=== PATIENT | female | born 1965 | race Caucasian/White ===

== ENCOUNTER 2020-01-19 16:44 | Emergency (ER) | payer MEDICAID ==
[2020-01-19] MEDS ORDERED: Sodium Chloride 0.9% 10 ML Syringe FLUSH PRN (17:35)
[2020-01-19] MEDS ORDERED: Sodium Chloride 0.9% 1,000 ML IV SCH (17:45)
--- NOTE | 2020-01-19 18:13 | EDM.PDOC ---
ED HPI GENERAL MEDICAL PROBLEM - General Chief Complaint: General Stated Complaint: RACING HEART/LIGHT HEADED Time Seen by Provider: 01/19/20 17:15 Source of Information: Reports: Patient - History of Present Illness INITIAL COMMENTS - FREE TEXT/NARRATIVE: pt presents to the ER with palpitations starting at about 1500 today, she has a history of SVT which usually reverses with vagal maneuvers. this was not the case today on her way up to [place] traveling from [facility]. she took 100mg of her prescribed beta gaurang with no improvement after two hours and she states it has been over three years since her last ER visit for this. pt denies fever, cough, chills, nausea, vomiting, chest pain. - Related Data Allergies Allergy/AdvReac Type Severity Reaction Status Date / Time Penicillins Allergy Anaphylactic Verified 01/19/20 17:19 Shock Past Medical History Cardiovascular History: Reports: Arrhythmia, Other (See Below) Other Cardiovascular History: SVT, dizziness Endocrine/Metabolic History: Reports: Diabetes, Type I Social & Family History - Tobacco Use Smoking Status *Q: Never Smoker Second Hand Smoke Exposure: No - Caffeine Use Caffeine Use: Reports: None - Recreational Drug Use Recreational Drug Use: No ED ROS GENERAL - Review of Systems Review Of Systems: Comprehensive ROS is negative, except as noted in HPI. ED EXAM, GENERAL - Physical Exam Exam: See Below Exam Limited By: No Limitations General Appearance: Alert, WD/WN Eye Exam: Bilateral Eye: EOMI, PERRL Throat/Mouth: Normal Inspection, Normal Lips, Normal Teeth Head: Atraumatic, Normocephalic Respiratory/Chest: No Respiratory Distress, Lungs Clear, Normal Breath Sounds, No Accessory Muscle Use Cardiovascular: Normal Peripheral Pulses, Regular Rate, Rhythm Peripheral Pulses: 2+: Radial (L), Radial (R) Extremities: Normal Inspection, Normal Range of Motion, Non-Tender, No Pedal Edema Neurological: Alert, Oriented, CN II-XII Intact, Normal Cognition, Normal Gait, No Motor/Sensory Deficits Psychiatric: Normal Affect, Normal Mood Skin Exam: Warm, Dry, Intact Lymphatic: No Adenopathy EKG INTERPRETATION EKG Date: 01/19/20 Xenia: Normal P-Wave: Variable QRS: Normal ST-T: Normal QT: Normal Comparison: NA - No Prior EKG (sinus tachycardia) Course - Vital Signs Last Recorded V/S: Last Vital Signs Temp 98 F 01/19/20 17:15 Pulse 76 01/19/20 18:01 Resp 18 01/19/20 17:49 BP 124/76 01/19/20 18:01 Pulse Ox 100 01/19/20 17:49 - Orders/Labs/Meds Orders: Active Orders 24 hr Category Date Time Status EKG Documentation Completion [RC] ASDIRECTED Care 01/19/20 17:18 Active Peripheral IV Insertion Adult [OM.PC] Routine Oth 01/19/20 17:35 Ordered Labs: Laboratory Tests 01/19/20 01/19/20 01/19/20 Range/Units 17:15 17:15 17:15 WBC 6.2 (4.0-11.0) K/uL RBC 4.24 (3.80-5.80) M/uL Hgb 12.9 (11.5-16.5) g/dL Hct 38.4 (37.0-47.0) % MCV 91 (76-96) fL MCH 30.4 (27.0-32.0) pg MCHC 33.6 (31.0-35.0) g/dL RDW 13.1 (11.0-16.0) % Plt Count 155 (150-500) K/uL MPV 11.4 H (6.0-10.0) fL Neut % (Auto) 68.9 (45.0-70.0) % Lymph % (Auto) 20.4 (20.0-40.0) % [place] % (Auto) 9.1 (3.0-10.0) % Eos % (Auto) 1.3 (1.0-5.0) % Baso % (Auto) 0.3 (0.0-0.5) % Neut # (Auto) 4.25 (2.00-7.50) K/uL Lymph # (Auto) 1.26 L (1.50-4.00) K/uL [place] # (Auto) 0.56 (0.20-0.80) K/uL Eos # (Auto) 0.08 (0.04-0.40) K/uL Baso # (Auto) 0.02 (0.02-0.10) K/uL Sodium 136 (136-145) mmol/L Potassium 3.6 (3.5-5.1) mmol/L Chloride 101 (98-107) mmol/L Carbon Dioxide 27.2 (21.0-32.0) mmol/L Anion Gap 11.4 (5.0-15.0) mmol/L BUN 11 (8-26) mg/dL Creatinine 0.75 (0.55-1.02) mg/dL Est Cr Clr Drug Dosing 83.39 mL/min Estimated GFR (MDRD) > 60 (>60) MLS/MIN BUN/Creatinine Ratio 14.7 (6-25) Glucose 192 H (74-100) mg/dL Calcium 8.1 L (8.5-10.1) mg/dL Total Bilirubin 0.5 (0.0-1.0) mg/dL AST 23 (15-37) U/L ALT 26 (12-78) U/L Alkaline Phosphatase 48 (46-116) U/L Troponin I < 0.017 (0.000-0.060) ng/mL Total Protein 7.7 (6.4-8.2) g/dL Albumin 3.7 (3.4-5.0) g/dL Globulin 4.0 (2.2-4.2) g/dL Albumin/Globulin Ratio 0.9 (0.8-2.0) Meds: Medications Discontinued Medications Generic Name Dose Route Start Last Admin Trade Name Freq PRN Reason Stop Dose Admin Sodium Chloride 1,000 mls @ 999 mls/hr 01/19/20 17:45 01/19/20 17:42 Normal Saline IV 999 mls/hr ASDIRECTED MARY Administration Sodium Chloride 10 ml 01/19/20 17:35 Saline Flush FLUSH ASDIRECTED PRN Keep Vein Open Departure - Departure Time of Disposition: 18:20 Disposition: Home, Self-Care 01 Condition: Good Clinical Impression: Inappropriate sinus tachycardia - Discharge Information *PRESCRIPTION DRUG MONITORING PROGRAM REVIEWED*: Not Applicable *COPY OF PRESCRIPTION DRUG MONITORING REPORT IN PATIENT LENNY: Not Applicable Instructions: Sinus Tachycardia Referrals: PCP,None [Primary Care Provider] - Forms: ED Department Discharge Additional Instructions: continue with your regular dosed atenolol as scheduled drink at least 100oz of water a day follow cardiology recommendations for vagal maneuvers and atenolol dosing and ER checks. Sepsis Event Note (ED) - Evaluation Sepsis Screening Result: No Definite Risk - Focused Exam Vital Signs: Vital Signs Temp Pulse Resp BP Pulse Ox 01/19/20 18:01 76 124/76 01/19/20 17:49 77 18 125/88 100 01/19/20 17:44 122 H 125/88 100 01/19/20 17:31 122 H 133/88 01/19/20 17:15 98 F 122 H 16 141/88 H - Problem List & Annotations (1) Inappropriate sinus tachycardia SNOMED Code(s): 565000059 Code(s): R00.0 - TACHYCARDIA, UNSPECIFIED Status: Acute - Problem List Review Problem List Initiated/Reviewed/Updated: Yes - My Orders Last 24 Hours: My Active Orders 01/19/20 17:18 EKG Documentation Completion [RC] ASDIRECTED 01/19/20 17:35 Peripheral IV Insertion Adult [OM.PC] Routine - Assessment/Plan Last 24 Hours: My Active Orders 01/19/20 17:18 EKG Documentation Completion [RC] ASDIRECTED 01/19/20 17:35 Peripheral IV Insertion Adult [OM.PC] Routine Assessment:: inappropriate sinus tachycardia Plan: continue with your regular dosed atenolol as scheduled drink at least 100oz of water a day follow cardiology recommendations for vagal maneuvers and atenolol dosing and ER checks.
== END 2020-01-19 18:38 | disposition home or self-care (01) ==
LOC: LB.ED 16:44
DX: R00.0 Tachycardia, unspecified (principal); E10.9 Type 1 diabetes mellitus without complications; Z88.0 Allergy status to penicillin
CPT/HCPCS: 36415; 80053; 84484; 85025; 93005; 96360; 99285; J7030